=== PATIENT | male | born 1930 | race Caucasian/White ===

== ENCOUNTER 2016-10-01 12:55 | Emergency (ER) | payer MEDICARE, OTHER ==
[~2016-10-01] VITALS: Wt 53.5 kg
[~2016-10-01 12:55] MED LIST: ADV25050 INHALATION; ATOR40TA68 PO; CELE200C PO; CLOP75TA27 PO; CYCL1DRO BOTH EYES; DEXL60CA2 PO; DOCU100C26 PO; ISOS30TA5 PO; LURA40TA PO; METO-448 PO; MIRA50TA PO; MONT10TA21 PO; OLME20TA20 PO; RANO500T2 PO; TAMS0.4C2 PO
[2016-10-01] MEDS ORDERED: AMIT25TA9 PO (15:40)
[2016-10-01] MEDS ORDERED: OLAN5TAB5 PO (15:40)
--- NOTE | 2016-10-01 15:44 | ERD ---
ER Documentation Chief Complaint Date/Time DATE: 10/01/16 TIME: 15:39 Chief Complaint here to have g-tube removed HPI This 86-year-old male presents with his son from his primary care office for feeding tube removal. 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 He is now eating and feeling better. No longer has any need for the feeding tube. He has no pain around the site or other complications. He is feeling otherwise well. ROS All systems reviewed and are negative except as per history of present illness. Medications Home Meds Active Scripts Metoprolol Tartrate* (Lopressor*) 25 Mg Tab, 25 MG PO BID, #60 TAB Prov:ISABELLA WAGGONER MD 01/28/16 Reported Medications Montelukast Sodium* (Singulair*) 10 Mg Tablet, 10 MG PO QHS, #30 TAB 01/25/16 Cyclosporine (RESTASIS) 1 Each Droperette, 1 DROP BOTH EYES Q12, #1 BOX 01/25/16 Mirabegron (Myrbetriq) 50 Mg Tab.er.24h, 25 MG PO DAILY, TAB 01/25/16 Atorvastatin* (Atorvastatin*) 40 Mg Tablet, 40 MG PO QHS, #30 TAB 01/25/16 Dexlansoprazole (Dexilant) 60 Mg Cap., 60 MG PO DAILY, #30 CAP 01/25/16 Celecoxib* (Celebrex*) 200 Mg Capsule, 200 MG PO DAILY, CAP 01/25/16 Salmeterol Xinaf/Fluticasone* (Advair*) 250-50 Diskus Inhaler, 1 INH INHALATION BID, #1 INHALER 01/25/16 Ranolazine* (Ranexa*) 500 Mg Tab.sr.12h, 500 MG PO Q12, TAB 01/25/16 Lurasidone Hcl (LATUDA) 40 Mg Tablet, 40 MG PO DAILY, #30 TAB 01/25/16 Tamsulosin Hcl* (Tamsulosin Hcl*) 0.4 Mg Cap.er.24h, 0.4 MG PO HS, CAP 01/25/16 Clopidogrel Bisulfate (Clopidogrel) 75 Mg Tablet, 75 MG PO DAILY, #30 TAB 01/25/16 Olmesartan Medoxomil (Benicar) 20 Mg Tablet, 20 MG PO DAILY, #30 TAB 01/25/16 Isosorbide Mononitrate* (Isosorbide Mononitrate*) 30 Mg Tab.er.24h, 30 MG PO DAILY, TAB 01/25/16 Docusate Sodium* (Doc-Q-Lace*) 100 Mg Capsule, 100 MG PO DAILY Y for CONSTIPATION, CAP 01/25/16 Allergies Allergies: Coded Allergies: No Known Allergy (Unverified , 10/01/16) PMhx/Soc History of Surgery: Yes (cholecystectomy, hernia repair, L FA sx) Anesthesia Reaction: No Hx Neurological Disorder: No Hx Respiratory Disorders: No Hx Cardiac Disorders: Yes (htn, angiogram) Hx Psychiatric Problems: No Hx Miscellaneous Medical Probl: No Hx Alcohol Use: Yes (social cognac, whiskey) Hx Substance Use: No Hx Tobacco Use: Yes Physical Exam Vitals Vital Signs Date Time Temp Pulse Resp B/P Pulse Ox O2 Delivery O2 Flow Rate FiO2 10/01/16 13:16 97.8 106 18 94/62 98 Physical Exam Const: [] No distress Eyes: Normal Conjunctiva ENT: Normal External Ears, Nose and Mouth. Neck: Full range of motion..~ No meningismus. Abd: Soft, non tender, non distended. Normal bowel sounds. Feeding tube in place with very slight erythema surrounding otherwise clean dry and intact. Skin: No petechiae or rashes Ext: No cyanosis, or edema Neur: Awake and alert, normal gait, no focal deficits Psych: Normal Mood and Affect Procedures/MDM Feeding tube removed. Patient with no other symptoms or complications currently. Feeding tube removal note: Feeding tube was not the style that has a balloon inflated. Tape was carefully removed and stomach is held with one hand while traction was applied with the other hand leading to the removal of feeding tube. There was no bleeding, no discharge or fluid. Area was cleaned. Dressing was placed over the site. Discharging patient with primary care follow -up within the next 2 days to check the site. No showering for 2 days or until this site is closed over. Departure Diagnosis: Primary Impression: Encounter for care related to feeding tube Condition: Stable Patient Instructions: Laceration, All Additional Instructions: Call your primary care doctor TOMORROW for an appointment during the next 1-2 days.See the doctor sooner or return here if your condition worsens before your appointment time. BASIM ONOFRE DO October 01, 2016 15:44
== END 2016-10-01 15:46 | disposition home or self-care (01) ==
LOC: E/R 12:55
DX: Z43.1 Encounter for attention to gastrostomy (principal); I10 Essential (primary) hypertension; Z87.891 Personal history of nicotine dependence; Z79.01 Long term (current) use of anticoagulants

== ENCOUNTER 2016-11-05 17:19 | Emergency (ER) | payer MEDICARE, OTHER ==
[~2016-11-05] VITALS: Ht 165.1 cm; Wt 54.5 kg
[~2016-11-05 17:19] MED LIST changes: -ADV25050 INHALATION; +AMIT25TA9 PO; -ATOR40TA68 PO; -CELE200C PO; -CLOP75TA27 PO; -CYCL1DRO BOTH EYES; -DEXL60CA2 PO; -DOCU100C26 PO; -ISOS30TA5 PO; -LURA40TA PO; -METO-448 PO; -MIRA50TA PO; -MONT10TA21 PO; +OLAN5TAB5 PO; -OLME20TA20 PO; -RANO500T2 PO; -TAMS0.4C2 PO
[2016-11-05 17:35] VITALS: Ht 165.1 cm; Wt 54.5 kg
[2016-11-05] MEDS ORDERED: ONDANSETRON 4 MG INJ IV STA (17:35)
[2016-11-05] MEDS ORDERED: morphine 4 MG/ML VIAL IV STA (17:35)
[2016-11-05 18:05] LABS: ADD SCAN DIFF NO
[2016-11-05 18:09] LABS: BASOPHILS % 0.6 % (0.0-2.0); EOSINOPHILS # 0.1 10^3/ul (0.0-0.5); EOSINOPHILS % 1.8 % (0.0-7.0); HEMATOCRIT 39.3 % (42.0-52.0); HEMOGLOBIN 13.8 g/dl (14.0-18.0); LYMPHOCYTES % 30.8 % (15.0-51.0); MEAN CORPUSCULAR HEMOGLOBIN 32.1 pg (29.0-33.0); MEAN CORPUSCULAR HGB CONC 35.1 g/dl (32.0-37.0); MEAN CORPUSCULAR VOLUME 91.4 fl (82.0-101.0); MEAN PLATELET VOLUME 10.1 fl (7.4-10.4); MONOCYTE # 0.5 10^3/ul (0.3-0.9); NEUTROPHIL # 3.9 10^3/ul (1.6-7.5); NEUTROPHILS % 59.2 % (39.0-77.0); PLATELET COUNT 166 10^3/UL (140-415); RED CELL DISTRIBUTION WIDTH 14.2 % (11.5-14.5); WHITE BLOOD COUNT 6.6 10^3/ul (4.8-10.8)
[2016-11-05 18:28] LABS: INR 1.25; PROTIME 15.8 Sec (12.2-14.2); PT RATIO 1.2
[2016-11-05 18:29] LABS: PARTIAL THROMBOPLASTIN TIME 30.6 Sec (25.0-35.0)
[2016-11-05 18:31] LABS: CALCIUM 9.3 mg/dl (8.4-10.2); CREATININE 1.01 mg/dl (0.61-1.24)
--- NOTE | 2016-11-05 18:31 | RADRPT ---
PROCEDURE: CT Lumbar Spine without contrast. CLINICAL INDICATION: Low back pain. TECHNIQUE: CT of the lumbar spine without contrast was performed. Axial images were [facility] thro [facility] the lumbar spine and reformatted at 2.5 mm slice thickness. Coronal and sagittal images were ref ormatted. The CTDIvol = 8.01 mGy and DLP = 215.46 mGy-cm. COMPARISON: None available FINDINGS: Vertebral bodies: Diffuse demineralization is consistent with osteopenia and unable to exclude osteo porosis. Mild loss of axial height involving the L1 level is present without fracture lucency. Tere dging syndesmophytes at the thoracolumbar junction are present. A concave appearance of the superio r for and L5 endplates with loss of axial height estimated at 10% likely reflect a chronic osteoporo tic compression deformities without bone retropulsion. There is no evidence of lytic or blastic les ion. The lordosis is intact. Conus medularis region: Normal in attenuation and location terminating at the L1 level. T12-L1: Calcification of the disk is present with minimal loss of disk stature but no evidence of di sk protrusion. Mild bilateral facet arthropathy is present. The central canal is patent. There is no evidence for foraminal stenosis. L1-L2: Calcification within the disk is present with mild loss of disk stature but no protrusion or disk complex. Minimal bilateral facet arthropathy is present. The ligamentum flava are normal in thi ckness. The central canal is patent. There is no evidence for foraminal stenosis. L2-L3: Some calcification within the disk is present with preserved disk stature and no evidence of disk protrusion. Mild bilateral facet arthropathy is noted. The ligamentum flava are normal in thick ness. The central canal is patent. There is no evidence for foraminal stenosis. L3-L4: Slight widening of the disk spaces result of the superior L4 concave appearance but no eviden ce of disk protrusion, trace disk bulging is noted. There is no facet arthropathy. The ligamentum fl michell are normal in thickness. The central canal is patent. There is no evidence for foraminal steno sis. L4-L5: Calcification of the disk space is noted level with preserved stature and trace circumferenti al osteophyte and disk complex without protrusion. Minimal bilateral facet arthropathy is present. T here is mild ligamentum flavum hypertrophy. The central canal is patent. Mild bilateral foraminal stenosis from osteophyte and disk complex is present left side greater than right. L5-S1: Preservation of disk stature with mild annular disk bulging but no evidence of protrusion or central stenosis. Mild bilateral facet arthropathy is present. The ligamentum flava are normal in th ickness. The central canal is patent. There is no evidence for foraminal stenosis. Sacrum and sacroiliac joints: No evidence of sacral insufficiency fracture. Mild degenerative narro wing of the sacroiliac joints is present. None spine related findings: Severe atherosclerotic calcification of the aorta is noted. Bilateral renal cysts are seen. RPTAT:HJJR IMPRESSION: 1. Demineralization concerning for osteoporosis. 2. Mild chronic-appearing compression deformities at L1, L4 and L5 without evidence of bone retropu lsion or central canal stenosis. 3. Mild disk disease and facet arthropathy at 5 with osteophyte and disk complex causing left great er than right foraminal stenosis. 4. Mild disk bulging and facet arthropathy at L5-S1 without significant central canal stenosis at t his or any other lumbar level. 5. Aortic atherosclerosis is present. Physician Shay Date Time Electronically viewed and signed by Physician Shay on 11/05/2016 18:31 JR/
--- NOTE | 2016-11-05 18:33 | RADRPT ---
PROCEDURE: CT pelvis without contrast. CLINICAL INDICATION: Pelvic pain TECHNIQUE: CT scan of the pelvis without contrast was performed. Sagittal and coronal reformatted images were obtained from the axial source images. CTDI = 7.03 mGy; DLP = 211.71 mGy-cm COMPARISON: None. FINDINGS: Osseous structures: Diffuse demineralization is likely related to osteoporosis. There is no eviden ce of pelvic bone fracture, lytic or blastic lesion. Minimal bilateral hip joint osteoarthrosis is present with small spurs arising from the left greater than right acetabulum and degenerative subcor tical cyst seen at the junction of the right greater than left femoral head and neck there is no keyshawn dence of avascular necrosis. Musculature and soft tissues: No evidence of muscular or subcutaneous tissue abnormality Other findings: Atherosclerotic calcification of the iliac and femoral systems. The prostate glan d is normal in size. The urinary bladder is unremarkable. The visualized gastrointestinal system s hows no evidence of abnormality RPTAT:HJJR IMPRESSION: 1. Demineralization likely osteoporosis without evidence of acute osseous abnormality of the pelvis or proximal femora. 2. Bilateral hip joint osteoarthrosis with degenerative subcortical cyst formation at the junction between the femoral head and neck on each side. 3. Atherosclerotic calcification of the iliac and femoral arteries systems. Physician Shay Date Time Electronically viewed and signed by Physician Shay on 11/05/2016 18:33 /
[2016-11-05] MEDS ORDERED: HYDR-906 PO (18:41)
[2016-11-05] MEDS ORDERED: IBUP400T22 PO (18:42)
[2016-11-05] MEDS ORDERED: SOD CHLORIDE 0.9% 500 ML IV ONE (19:00)
[2016-11-05 19:15] VITALS: BP 106/71; PULSE 79; RESP 17
--- NOTE | 2016-11-05 21:02 | ERA ---
ER Documentation Chief Complaint Date/Time DATE: 11/05/16 Chief Complaint LOWER BACK PAIN, DIFFICULTY STANDING WITHOUT SEVERE PAIN, FELL 2 DAYS AGO HPI The patient is a 86-year-old male, presenting to the ER because he fell backward 2 days ago, complaining of severe low back pain, denies headache, neck pain, chest pain, dyspnea, abdominal pain, vomiting, dysuria, diarrhea. He does not smoke nor drink Past medical history: Diabetes Past surgical history: None ROS All systems reviewed and are negative except as per history of present illness. Medications Home Meds Active Scripts Ibuprofen* (Motrin*) 400 Mg Tab, 400 MG PO Q6, #20 TAB Prov:KJ POTTS MD 11/05/16 Hydrocodone/Acetaminophen (Herriman 5-325 Tablet) 1 Each Tablet, 1 TAB PO Q6H Y for PAIN, #7 TAB Prov:KJ POTTS MD 11/05/16 Reported Medications Amitriptyline Hcl* (Amitriptyline Hcl*) 25 Mg Tablet, 25 MG PO QHS, #30 TAB 10/01/16 Olanzapine* (Zyprexa*) 5 Mg Tablet, 5 MG PO DAILY, #30 TAB 10/01/16 Allergies Allergies: Coded Allergies: No Known Allergy (Unverified , 10/01/16) PMhx/Soc History of Surgery: Yes (cholecystectomy, hernia repair, L FA sx) Anesthesia Reaction: No Hx Neurological Disorder: No Hx Respiratory Disorders: No Hx Cardiac Disorders: Yes (htn, angiogram) Hx Psychiatric Problems: No Hx Miscellaneous Medical Probl: No Hx Alcohol Use: Yes (social cognac, whiskey) Hx Substance Use: No Hx Tobacco Use: Yes Smoking Status: Current some day smoker Physical Exam Vitals Vital Signs Date Time Temp Pulse Resp B/P Pulse Ox O2 Delivery O2 Flow Rate FiO2 11/05/16 19:15 79 17 106/71 100 Room Air 11/05/16 17:35 96.0 84 17 106/66 96 Physical Exam Const: No acute distress. Head: Atraumatic. Eyes: Normal Conjunctiva. ENT: Normal External Ears, Nose and Mouth. Neck: Full range of motion. No meningismus. Resp: Clear to auscultation bilaterally. Cardio: Regular rate and rhythm. Abd: Soft, non distended, normal bowel sounds, non tender. Skin: No petechiae or rashes. Back: Moderate lumbar tenderness, no crepitus Ext: No cyanosis, or edema. Neur: Awake and alert. No focal deficit Psych: Normal Mood and Affect. Result Diagram: 11/05/16174911/05/161749 Results 24 hrs Laboratory Tests Test 11/05/16 17:50 White Blood Count 6.610^3/ul Red Blood Count 4.3010^6/ul Hemoglobin 13.8g/dl Hematocrit 39.3% Mean Corpuscular Volume 91.4fl Mean Corpuscular Hemoglobin 32.1pg Mean Corpuscular Hemoglobin Concent 35.1g/dl Red Cell Distribution Width 14.2% Platelet Count 19499^3/UL Mean Platelet Volume 10.1fl Neutrophils % 59.2% Lymphocytes % 30.8% Monocytes % 7.0% Eosinophils % 1.8% Basophils % 0.6% Nucleated Red Blood Cells % 0.0/100WBC Neutrophils # 3.910^3/ul Lymphocytes # 2.010^3/ul Monocytes # 0.510^3/ul Eosinophils # 0.110^3/ul Basophils # 0.010^3/ul Nucleated Red Blood Cells # 0.010^3/ul Prothrombin Time 15.8Sec Prothrombin Time Ratio 1.2 INR International Normalized Ratio 1.25 Activated Partial Thromboplast Time 30.6Sec Sodium Level 141mmol/L Potassium Level 4.0mmol/L Chloride Level 105mmol/L Carbon Dioxide Level 23mmol/L Anion Gap 17 Blood Urea Nitrogen 33mg/dl Creatinine 1.01mg/dl Glucose Level 114mg/dl Calcium Level 9.3mg/dl Current Medications Medications (Trade) Dose Ordered Sig/Jamarcus Route PRN Reason Start Time Stop Time Status Last Admin Dose Admin Ondansetron HCl (Zofran Inj) 4 mg ONCE STAT IV 11/05/16 17:35 11/05/16 17:37 DC 11/05/16 17:52 Morphine Sulfate 2 mg 2 mg ONCE STAT IV 11/05/16 17:35 11/05/16 17:37 DC 11/05/16 17:52 Sodium Chloride (NS) 500 ml @ 500 mls/hr Q1H ONCE IV 11/05/16 19:00 11/05/16 19:17 DC Procedures/[place] [id number] Radiology Main Line: [phone] DIAGNOSTIC IMAGING REPORT Patient: ADRIAN CASTRO : 1930 Age: 86 Sex: M [id number] DOS: 11/05/16 1735 Ordering MD: KJ POTTS MD Location: E/R Room/Bed: PROCEDURE: CT pelvis without contrast. CLINICAL INDICATION: Pelvic pain TECHNIQUE: CT scan of the pelvis without contrast was performed. Sagittal and coronal reformatted images were obtained from the axial source images. CTDI = 7.03 mGy; DLP = 211.71 mGy-cm COMPARISON: None. FINDINGS: Osseous structures: Diffuse demineralization is likely related to osteoporosis. There is no evidence of pelvic bone fracture, lytic or blastic lesion. Minimal bilateral hip joint osteoarthrosis is present with small spurs arising from the left greater than right acetabulum and degenerative subcortical cyst seen at the junction of the right greater than left femoral head and neck there is no evidence of avascular necrosis. Musculature and soft tissues: No evidence of muscular or subcutaneous tissue abnormality Other findings: Atherosclerotic calcification of the iliac and femoral systems. The prostate gland is normal in size. The urinary bladder is unremarkable. The visualized gastrointestinal system shows no evidence of abnormality RPTAT:HJJR IMPRESSION: 1. Demineralization likely osteoporosis without evidence of acute osseous abnormality of the pelvis or proximal femora. 2. Bilateral hip joint osteoarthrosis with degenerative subcortical cyst formation at the junction between the femoral head and neck on each side. 3. Atherosclerotic calcification of the iliac and femoral arteries systems. Physician Shay Date Time Electronically viewed and signed by Physician Shay on 11/05/2016 18:33 JR/ CC: KJ POTTS MD [facility] [id number] [place], [place] [id number] Radiology Main Line: [phone] DIAGNOSTIC IMAGING REPORT Patient: ADRIAN CASTRO : 1930 Age: 86 Sex: M MR #: [id number] [facility] #: [id number] DOS: 11/05/16 1735 Ordering MD: KJ POTTS MD Location: E/R Room/Bed: PROCEDURE: CT Lumbar Spine without contrast. CLINICAL INDICATION: Low back pain. TECHNIQUE: CT of the lumbar spine without contrast was performed. Axial images were obtained through the lumbar spine and reformatted at 2.5 mm slice thickness. Coronal and sagittal images were reformatted. The CTDIvol = 8.01 mGy and DLP = 215.46 mGy-cm. COMPARISON: None available FINDINGS: Vertebral bodies: Diffuse demineralization is consistent with osteopenia and unable to exclude osteoporosis. Mild loss of axial height involving the L1 level is present without fracture lucency. Bridging syndesmophytes at the thoracolumbar junction are present. A concave appearance of the superior for and L5 endplates with loss of axial height estimated at 10% likely reflect a chronic osteoporotic compression deformities without bone retropulsion. There is no evidence of lytic or blastic lesion. The lordosis is intact. Conus medularis region: Normal in attenuation and location terminating at the L1 level. T12-L1: Calcification of the disk is present with minimal loss of disk stature but no evidence of disk protrusion. Mild bilateral facet arthropathy is present. The central canal is patent. There is no evidence for foraminal stenosis. L1-L2: Calcification within the disk is present with mild loss of disk stature but no protrusion or disk complex. Minimal bilateral facet arthropathy is present. The ligamentum flava are normal in thickness. The central canal is patent. There is no evidence for foraminal stenosis. L2-L3: Some calcification within the disk is present with preserved disk stature and no evidence of disk protrusion. Mild bilateral facet arthropathy is noted. The ligamentum flava are normal in thickness. The central canal is patent. There is no evidence for foraminal stenosis. L3-L4: Slight widening of the disk spaces result of the superior L4 concave appearance but no evidence of disk protrusion, trace disk bulging is noted. There is no facet arthropathy. The ligamentum flava are normal in thickness. The central canal is patent. There is no evidence for foraminal stenosis. L4-L5: Calcification of the disk space is noted level with preserved stature and trace circumferential osteophyte and disk complex without protrusion. Minimal bilateral facet arthropathy is present. There is mild ligamentum flavum hypertrophy. The central canal is patent. Mild bilateral foraminal stenosis from osteophyte and disk complex is present left side greater than right. L5-S1: Preservation of disk stature with mild annular disk bulging but no evidence of protrusion or central stenosis. Mild bilateral facet arthropathy is present. The ligamentum flava are normal in thickness. The central canal is patent. There is no evidence for foraminal stenosis. Sacrum and sacroiliac joints: No evidence of sacral insufficiency fracture. Mild degenerative narrowing of the sacroiliac joints is present. None spine related findings: Severe atherosclerotic calcification of the aorta is noted. Bilateral renal cysts are seen. RPTAT:HJJR IMPRESSION: 1. Demineralization concerning for osteoporosis. 2. Mild chronic-appearing compression deformities at L1, L4 and L5 without evidence of bone retropulsion or central canal stenosis. 3. Mild disk disease and facet arthropathy at 5 with osteophyte and disk complex causing left greater than right foraminal stenosis. 4. Mild disk bulging and facet arthropathy at L5-S1 without significant central canal stenosis at this or any other lumbar level. 5. Aortic atherosclerosis is present. Physician Shay Date Time Electronically viewed and signed by Physician Shay on 11/05/2016 18:31 JR/ CC: KJ POTTS MD MEDICAL MAKING DECISION: The patient is a 86-year-old male, presenting with acute back pain, acute dehydration. He was treated with morphine 2 mg IV for pain, Zofran 4 mgIV for nausea and normal saline 500 mL normal saline for the acute dehydration with good response The differential diagnoses considered include but are not limited to caudal equina syndrome, spinal abscess, DJD, diskitis, lumbar radiculopathy. Departure Diagnosis: Primary Impression: Back pain Additional Impressions: Dehydration Anemia Condition: Good Patient Instructions: Back Pain (Acute Or Chronic) Referrals: DELVIN MONTILLA (PCP) Additional Instructions: Call your primary care doctor TOMORROW for an appointment during the next 2-3 days.See the doctor sooner or return here if your condition worsens before your appointment time. He was discharged with Jade and KJ Chang MD Nov 05, 2016 21:02
== END 2016-11-05 19:16 | disposition home or self-care (01) ==
LOC: E/R 17:19
DX: M54.5 Low back pain (principal); E86.0 Dehydration; D64.9 Anemia, unspecified; E11.9 Type 2 diabetes mellitus without complications; I10 Essential (primary) hypertension; F17.210 Nicotine dependence, cigarettes, uncomplicated; R10.2 Pelvic and perineal pain
CPT/HCPCS: 36415; 72131; 72192; 80048; 85025; 85610; 85730; 96374; 96375; 99285; J2270; J2405; J7040

== ENCOUNTER 2017-11-05 11:47 | Inpatient (IN) | END 2017-11-21 18:03 | disposition home health service (06) | DRG 392 ==

== ENCOUNTER 2018-01-17 09:36 | Emergency (ER) | END 2018-01-17 11:29 | disposition home or self-care (01) ==

== ENCOUNTER 2018-06-19 12:45 | Day surgery (SDC) | payer MEDICARE, OTHER ==
[~2018-06-19] VITALS: Ht 160 cm; Wt 75.0 kg
[~2018-06-19 12:45] MED LIST changes: -AMIT25TA9 PO; +CANA1000R PR
[2018-06-19 13:24] VITALS: Ht 160 cm; Wt 75.0 kg
[2018-06-19] MEDS ORDERED: ZANTAC (13:33)
[2018-06-19 16:00] VITALS: BP 119/65; PULSE 70; RESP 18
--- NOTE | 2018-06-19 16:01 | PREAC ---
Date/Time of Note Date/Time of Note DATE: 06/19/18 TIME: 16:00 Anesthesia Eval and Record Evaluation Time Pre-Procedure Interview DATE: 06/19/18 TIME: 16:00 Age 87 Sex male NPO: 8 hrs Preoperative diagnosis failure to thrive Planned procedure Peg Past Medical History Past Medical History: Includes Heme: Anemia Psych: Depression Surgery & Anesthesia Issues No known issue Meds Anticoagulation: No Beta Jose A within 24 hr: No Reason Beta Jose A not given: Pt. not on B-Jose A Active Scripts Olanzapine* (Zyprexa*) 5 Mg Tablet, 10 MG PO HS for 30 Days, #30 TAB Prov:LUIS ORDONEZ MD 11/21/17 Mesalamine* (Canasa*) 1,000 Mg Supp, 1000 MG ND HS, #10 SUPP Prov:DEBBIE MOISE NP 11/13/17 Reported Medications [Zantac] No Conflict Check 06/19/18 Olanzapine* (Zyprexa*) 5 Mg Tablet, 5 MG PO DAILY, #30 TAB 10/01/16 Meds reviewed: Yes Allergies Coded Allergies: No Known Allergy (Unverified , 06/19/18) Allergies Reviewed: Yes Labs/Studies Labs Reviewed: Reviewed by anesthesiologist test: Negative Studies: ECG Pre-procedure Exam Airway: Adequate mouth opening, Adequate thyromental dist Mallampati: Mallampati II Teeth: Normal Lung: Normal Heart: Normal ASA Physical Status ASA physical status: 3 Emergency: None Planned Anesthetic General/MAC: Mask Pre-operative Attestations Prior to commencing anesthesia and surgery, the patient was re-evaluated, there was verification of: *The patient's identity *The results of appropriate recent lab work and preoperative vital signs *The above evaluation not changing prior to induction *Anesthetic plan, risk benefits, alternative and complications discussed with patient/family; questions answered; patient/family understands, accepts and wishes to proceed. MAYELIN ATKINS Jun 19, 2018 16:01
--- NOTE | 2018-06-20 14:33 | PAC ---
Date/Time of Note Date/Time of Note DATE: 06/20/18 TIME: 14:33 Post-Anesthesia Notes Post-Anesthesia Note Last documented vital signs Vital Signs Date Temp Pulse Resp B/P (MAP) Pulse Ox O2 O2 Flow FiO2 Time Delivery Rate 06/19/18 97.9 70 18 119/65 100 Room Air 16:00 (83) Activity: WNL Respiratory function: WNL Cardiovascular function: WNL Mental status: Baseline Pain reasonably controlled: Yes Hydration appropriate: Yes Nausea/Vomiting absent: Yes MAYELIN ATKINS Jun 20, 2018 14:33
== END 2018-06-19 17:18 | disposition home or self-care (01) ==
LOC: GIL 12:45
PROVIDERS: ATTEND Internal Medicine Gastroenterology
DX: K94.23 Gastrostomy malfunction (principal); R63.3 Feeding difficulties; Y84.8 Other medical procedures as the cause of abnormal reaction of the patient, or of later complication, without mention of misadventure at the time of the procedure; Y82.8 Other medical devices associated with adverse incidents
CPT/HCPCS: 43762